=== PATIENT | male | born 1985 | race Caucasian/White ===

== ENCOUNTER 2016-12-10 21:59 | Emergency (ER) | payer SELFPAY ==
[~2016-12-10] VITALS: Ht 162.6 cm; Wt 77.0 kg
[2016-12-10 22:04] VITALS: BP 139/99
== END 2016-12-10 22:20 | disposition left against medical advice (07) ==
LOC: ER 22:16
DX: R07.9 Chest pain, unspecified (principal); Z53.21 Procedure and treatment not carried out due to patient leaving prior to being seen by health care provider